=== PATIENT | female | born 1955 | race Caucasian/White ===

== ENCOUNTER 2020-09-16 06:24 | Observation (INO) ==
--- NOTE | 2020-08-27 09:07 | ANES ---
Anesthesia Pre Procedure Eval HOME MEDICATIONS diclofenac sodium 75 mg tablet,delayed release 75 mg PO DAILY tab 06/09/20 [Last Taken Unknown] multivitamin 1 tab PO DAILY 06/09/20 [Last Taken Unknown] cholecalciferol (vitamin D3) 50 mcg (2,000 unit) tablet 2,000 unit PO DAILY 07/15/20 [Last Taken Unknown] amlodipine 5 mg tablet 5 mg PO DAILY #30 tab 08/13/20 [Last Taken Unknown] levothyroxine 100 mcg tablet 100 mcg PO DAILY #30 tab 08/13/20 [Last Taken Unknown] Allergies/Adverse Reactions: Allergies Allergy/AdvReac Type Severity Reaction Status Date / Time clams Allergy Intermediate hives Verified 08/27/20 08:56 Sulfa (Sulfonamide Allergy Intermediate Hives Verified 08/27/20 08:56 Antibiotics) cedar pollen Allergy Intermediate asthma Uncoded 08/27/20 08:56 cleaning agents Allergy Intermediate asthma Uncoded 08/27/20 08:56 - Planned Procedure Planned Procedure: Right Arthroplasty Total Knee Medication List Reviewed:: Yes Allergies Verified: Yes Medical History (Last Reviewed 08/27/20 @ 09:05 by Nuno Velez CRNA) Primary osteoarthritis of right knee (Chronic) Foot pain, left Onset Date: Unknown Hepatitis Onset Date: Unknown Right knee pain Onset Date: ~05/2020 Asthma Onset Date: Unknown Graves disease Onset Date: Unknown HTN (hypertension) Onset Date: Unknown Mariah's disease Onset Date: Unknown Heart murmur Onset Date: Unknown Hyperthyroidism Onset Date: Unknown Post-menopausal Onset Date: Unknown Calculus of kidney Onset Date: Unknown Surgical History (Last Reviewed 08/27/20 @ 09:05 by Nuno Velez CRNA) H/O section Onset Date: ~1979 1977,1978,1979 H/O foot surgery Onset Date: Unknown Dr. Calderon-excise tumor, left foot. Dr. Ramirez-heal spur H/O thumb surgery Onset Date: 11/09/05 Dr. Calderon- excision of mucous cyst right thumb with debridement of bone from proximal phalanx. History of carpal tunnel surgery Onset Date: Unknown Dr. Calderon History of esophagogastroduodenoscopy (EGD) Onset Date: 02/18/12 Jose Mariaan- CLOtest negative, mild chemical irritation. Hx of cholecystectomy Onset Date: 02/28/12 [place] Family History (Last Reviewed 08/27/20 @ 09:05 by Nuno Velez CRNA) Mother Thyroid disease Father Alcoholic Sister 2 half sisters w/? uterine ca, 1 half sister w/breast ca Sister 1 half sister-age 21-lupus, 1 half sister-age 48-lymphoma Grandmother , age 60's Cancer maternal grandmother-colon ca Grandfather , age 60's Cancer maternal grandfather-prostate - Family Anesthesia History Family History:: no untoward family reactions to anesthesia - Airway/Neck/Teeth Teeth Condition: intact - Respiratory Respiratory History: asthma - Cardiovascular Cardiac History: hypertension Tolerate Activity: Fair - Gastrointestinal NPO since: instructed npo after MN - Anesthesia Assessment and Plan ASA Class: PS, III - rt adductor canal block Planned difficult intubation/equipment available: No
[~2020-09-16 06:24] MED LIST: MORPHINE SULFATE 15 MG TABLET.SA PO PRN; ROPIVACAINE HCL/PF 100 MG, EPINEPHrine 0.2 MG, KETOROLAC TROMETHAMINE 30 MG in NORMAL S... IJ PRN; TRANEXAMIC ACID 1,000 MG in NORMAL SALINE 100 ML IV PRN; ceFAZolin SODIUM 1 GM VIAL IV PRN
[2020-09-16] MEDS ORDERED: BUPIVACAINE HCL/EPINEPHRINE 50 ML VIAL IJ ONE (06:54)
[2020-09-16] MEDS ORDERED: BUPIVACAINE HCL/PF 10 ML VIAL ONE (06:54)
[2020-09-16] MEDS ORDERED: LIDOCAINE HCL 20 ML VIAL ONE (06:54)
[2020-09-16] MEDS ORDERED: PROPOFOL VIAL IV ONE (06:55)
[2020-09-16] MEDS ORDERED: MIDAZOLAM HCL/PF 5 MG/ML VIAL ONE (07:01)
[2020-09-16] MEDS ORDERED: NORMAL SALINE 20 ML VIAL ONE (07:01)
[2020-09-16] MEDS ORDERED: ISOPROPYL ALCOHOL 480 APPL BTL MC ONE (07:06)
[2020-09-16] MEDS ORDERED: ceFAZolin SODIUM 1 GM VIAL ONE (07:06)
[2020-09-16] MEDS: RINGER'S SOLUTION,LACTATED 1,000 ML IV PRN ×2 (08:30→09:32)
[2020-09-16] MEDS ORDERED: ACETAMINOPHEN 500 MG TABLET PO PRN (09:51)
[2020-09-16] MEDS ORDERED: MORPHINE SULFATE 2 MG/ML DISP.SYRIN IV PRN (09:51)
[2020-09-16] MEDS ORDERED: MAG HYDROX/ALUMINUM HYD/SIMETH 30 ML UDC PO PRN (09:51)
[2020-09-16] MEDS ORDERED: ZOLPIDEM TARTRATE 5 MG TABLET PO PRN (09:51)
[2020-09-16] MEDS ORDERED: diphenhydrAMINE HCL 50 MG/ML VIAL IV PRN (09:51)
[2020-09-16] MEDS ORDERED: MAGNESIUM HYDROXIDE 30 ML UDC PO PRN (09:51)
[2020-09-16] MEDS ORDERED: ONDANSETRON HCL/PF 2 MG/ML VIAL IV PRN (09:51)
--- NOTE | 2020-09-16 09:51 | OR ---
Operative Report - Dictated Report Narrative: Date: 09/16/2020 Preoperative diagnosis: Right knee degenerative joint disease. Postoperative diagnosis: Right knee degenerative joint disease. Procedure: Right total knee arthroplasty. Surgeon: Dwain Varela M.D. Sql Analyst: Kvng Oropeza PA-C (provided and essential set of skilled, educated hands that assisted with transfer, positioning, prepping, draping, manipulation, retraction, placement of jigs, injection, insertion of implants, irrigation, closure wounds, and dressings all of which could not be performed by the available surgical crew) Anesthesia: Spinal with regional block and local periarticular joint injection. Complications: None Specimens: Bone. Estimated blood loss: Minimal. Tourniquet time: 80 minutes at 325 millimeters of mercury. Retained implants: Depuy Attune size 5 right lugged cemented posterior stabilized femoral component. Size 5 fixed-bearing cemented tibial platform. 5 by 5 millimeter posterior stabilized cross-linked tibial insert. 38 millimeter medialized patella button. Indications: Mrs. Montaño is a 65-year-old female who has had longstanding right knee pain and arthrosis. This patient was followed in my clinic for period of time with significant complaints of right knee pain consistent with arthritic changes. She had failed conservative measures including, but not limited to, activity modification, passage of time, medications, and other conservative measures. Patient wished to proceed with surgical treatment. The risks, benefits, and alternatives were discussed in clinic. The risks of , blood clots, bleeding, infection, nerve/tendon blood vessel/ injury, malposition of components, intraoperative fracture, postoperative limited range of motion, persistent pain, failure of components, and need for additional procedures. Patient wished to proceed consent was obtained after answering all questions. Procedure: After marking the correct extremity on the floor, the patient was taken to the operating room. A timeout was performed. IV antibiotics consisting of Ancef were administered prior to the procedure. A regional followed by spinal anesthetic was induced by anesthesia, per my request, on the operative table with all bony prominences well-padded. Figueroa catheter was placed, and a bump was placed under the operative side buttock. SCDs and TAYLOR hose were utilized on the nonoperative leg. A well-padded tourniquet was applied to the operative thigh. The operative leg was then pre-scrubbed with alcohol, prepped, and draped in a standard sterile fashion. After exsanguinating the extremity with an Esmarch bandage, the tourniquet was inflated. After marking out the anterior knee for standard incision centered over the patella, the skin was incised and dissected down to the joint retinaculum. The joint retinaculum was marked out as well as the horizontal axis of the patella, and a standard medial parapatellar arthrotomy was then made. The most proximal aspect of the quadriceps tendon and the patella tendon insertion were protected from release. A partial synovectomy was performed as well as a resection of the infrapatellar fat pad. The distal femoral fat pad proximal to the trochlea was also resected using cautery. The soft tissues were elevated off the medial aspect of the proximal tibia using a Shields elevator ensuring that we did not transect the medial collateral ligament. Upon initial evaluation range of motion was approximately 0 degrees to 115 degrees of flexion. There were signs of advanced arthrosis in the medial and patellofemoral greater than lateral joint spaces. There were large marginal osteophytes which were removed with a rongeur. The knee was hyperflexed and the patella was tucked laterally. Protecting the surrounding soft tissues with Homans, an entry drill was placed down the femoral canal using Whitesides line for guidance into the entry point. The intramedullary femoral alignment miri was utilized in order to cut the distal femur in 5 degrees of valgus resecting 10 millimeters of bone. Next the distal femur was sized to a size 5. A posterior referencing guide was utilized to place the distal femoral cutting block in 3 degrees of external rotation. This was pinned into place. The rotation was confirmed both visually and based on anatomic landmarks. The 4 in 1 cutting jig of the appropriate size was utilized in order to make all bony cuts. The lora wing was used to ensure no notching. Retractors were utilized in order to protect surrounding soft tissues. This cut did not result in any excessive notching. We then cut the box centered over the distal femur. This allowed for resection of the anterior and posterior cruciate ligaments. I then turned my attention to the preparation of the tibia. Using an extra medullary tibial alignment miri, 3 millimeters of bone was resected off the medial articular surface. This was made perpendicular to the mechanical axis of the joint with the alignment miri centered over the ankle mortise. The alignment miri was checked and was noted to be parallel to the mechanical axis, centered over the medial one third of the tibial tubercle, paralleling the anterior surface of the tibia. We then turned our attention to the remaining meniscus and soft tissues. These were removed while protecting the surrounding ligaments and soft tissues. The marginal osteophytes off the anterior, posterior, medial, lateral aspects of the femur and tibia were removed. The tibia was sized out to a size 5. Next the tibia was drilled and punched in an externally rotated position. Next the trial femur and a series of tibial inserts were utilized in order to allow for full extension and maximal flexion. It was found that a 5 millimeter insert gave the best range of motion and stability at multiple flexion points as well as at full extension there was less than 2 mm of gapping both medially and laterally. There is minimal anterior translation with the knee at 90 degrees of flexion and no signs of being able to dislocate the knee. The patella was then prepared. The initial thickness was 23 millimeters. This was reamed down to 13 millimeters parallel to the anterior surface of the patella. It was sized out to a size 38 medialized patella button. This was then drilled and trialed. Without any medial restraint the patella tracked appropriately and did not sublux or dislocate. At this point, it was felt these were the appropriate sized implants, and all trials were removed. The standard periarticular joint injection consisting of ropivacaine, Toradol, and epinephrine were injected into the periarticular joint tissues. The bony surfaces were thoroughly irrigated with a pulsatile-suction saline irrigation device. A bone plug from the prior resected anterior chamfer cut was placed into the drill hole at the distal femur. The bony surfaces were then dried in preparation for placement of the implants. The cement was vacuum mixed per the screen writer's instructions. The cement was placed on the dry bony surfaces and posterior aspect of the implants. The implants were impacted into place, removing all extruded cement. At this point anesthesia administered tranexamic acid per protocol intravenously. The knee was placed in extension with axial loading with the trial insert while the cement cured. Once the cement cured, all remaining extruded cement was removed. The knee was placed through a range of motion with the trial insert to ensure appropriate range of motion and stability. Final range of motion was approximately 0 to 120 degrees. The knee was again thoroughly irrigated with pulsatile saline lavage. The final polyethylene insert was then impacted into place ensuring no retained soft tissues. The remaining periarticular joint injection was injected. A medium Hemovac drain was placed exiting superior laterally. The knee was then placed over a triangle and the arthrotomy was closed with interrupted #1 Vicryl after thoroughly irrigating the joint. The deep and subcutaneous tissues were closed with interrupted 0 and 3-0 Vicryl respectively. Skin was closed with a running subcutaneous 3-0 Monocryl and Prineo Dermabond dressing. 4 x 4's, Sof-Rol, and a full leg Ras wrap were applied. All sponge, needle, blade, and instrument counts were correct prior to closing the wounds. Postoperative condition: The patient was awoken and transferred to the postanesthesia care unit in stable condition. Plan is to be admitted to the inpatient medical/surgical floor postoperatively for 24 hours of IV antibiotics, physical therapy, occupational therapy, and medical comanagement. Patient will be weightbearing as tolerated with range of motion as tolerated. DVT prophylaxis will be with SCDs, TAYLOR hose, and pharmacological anticoagulation. Anticipated hospital stay is approximately 1-3 days.
--- NOTE | 2020-09-16 10:18 | ANES ---
Post Anesthesia Discharge - Transfer of Care Transfer of Care handoff given to nurse: Yes - Discharge from PACU Discharge from PACU when meets criteria: Yes
--- NOTE | 2020-09-16 10:21 | ANES ---
Anesthesia Procedure Note Procedure Note: ANESTHESIA PROCEDURE NOTE Date of procedure: 09/16/2020. Time of procedure: 06 28. Performed by: Filippo Velez CRNA Director Engineering: Julian Rogers RN . Preprocedure diagnosis: Right knee DJD. Post procedure diagnosis: Same. Procedure: Ultrasound-guided right adductor canal block Indications: Postoperative analgesia. Findings: Patient brought to operating room #4, sedated, and given a spinal anesthetic. Patient's right inner thigh was prepped with ChloraPrep. Ultrasound utilized to identify the saphenous nerve in the right adductor canal. A 4 inch 20-gauge regional block needle was advanced under ultrasound guidance till tip of needle was placed just proximally to saphenous nerve. A total of 25 mL of 0.25% Marcaine with epinephrine 1 200,000 was injected with adequate spread of local anesthesia noted around the nerve. Regional block needle was removed intact. EBL: Minimal. Fluids: N/A. Specimen: N/A. Post procedure condition: The patient tolerated the procedure well. No complications were noted. Thank you for this consultation Filippo Velez CRNA
[2020-09-16] MEDS: DEXTROSE 5%-LACTATED RINGERS 1,000 ML IV PRN ×3 (11:00→22:30)
[2020-09-16] MEDS: ceFAZolin SODIUM 1 GM in DEXTROSE 5 % IN WATER 100 ML IV SCH ×4 (11:01→17:19)
[2020-09-16] MEDS: KETOROLAC TROMETHAMINE 15 MG/ML VIAL IV SCH ×3 (11:01→21:10)
[2020-09-16] MEDS ORDERED: NORMAL SALINE 1,000 ML IV ONE (13:05)
--- NOTE | 2020-09-16 13:36 | PN ---
Subjective - Date and Time Seen Date: 09/16/20 Time: 13:28 Subjective Narrative: Dr. Hernandez was called on Aimee due to her becoming difficult to arouse after surgery with blood pressure dropping to 70/30 with a heart rate of 30. She was given a bolus of Normal Saline at 999ml/hr and her heart rate, blood pressure, and mentation gradually improved. She reports feeling fine at this time, although she is still somnolent. She drifts off to sleep but awakens on verbal c ommand on spontaneously. She has not had any pain medications since arriving to the floor. She had versed and propofol during surgery. Objective - Vitals Vitals: Last Vital Signs Temp 36.2 C 09/16/20 11:03 Pulse 56 L 09/16/20 12:33 Resp 14 09/16/20 11:03 BP 128/99 H 09/16/20 12:33 Pulse Ox 90 L 09/16/20 12:33 - EKG/Xray Findings EKG: other - Sinus Bradycardia, rate 35 - Exam Constitutional: Present: Oriented x3, Cooperative, Somnolent ENT Exam: Present: hearing grossly normal Respiratory: Present: lungs clear, normal breath sounds Cardiovascular/Chest: Present: no edema, no murmur, bradycardia Extremity: Present: other - post op drain with minimal blood Skin Exam: Present: pallor Cauti Physician Documentation - Urinary Catheter Management Urethral (Figueroa) Date of Insertion: 09/16/20 Time of Insertion: 08:30 Assessment/Plan Plan Narrative: Bradycardia and hypotension after surgery. reports she passes out easy at home. I suspect a combination of anesthesia, surgery, and hypovolumia. Will treat with NS fluid bolus, which appears to be improving vitals and mentation already. Continue fluid bolus. Recommend caution with narcotics following this episode when given for pain (pain medications are not the cause of this episode as she has not received any since surgery, but it appears she is very susceptible to hypotension and bradycardia and I would still be very cautions with medicine). Continue to monitor vitals during and after bolus. No other evidence or history of cardiac problems. - Problems/Diagnosis (1) Sinus bradycardia Problem: Acute (2) Hypotension after procedure Problem: Acute
--- NOTE | 2020-09-16 14:17 | ANES ---
Post Anesthesia Assessment - Vital Signs Vitals: Last Vital Signs Temp 35.6 C L 09/16/20 13:20 Pulse 51 L 09/16/20 13:33 Resp 113 H 09/16/20 13:20 BP 116/48 09/16/20 13:33 Pulse Ox 100 09/16/20 13:33 Airway Patency: Normal - Mental Status Level Of Consciousness: Awake - Pain Level Pain Score: 4 - N/V Assessment Nausea/Vomiting Presence: None Dehydration:: No
[2020-09-16] MEDS: oxyCODONE HCL/ACETAMINOPHEN 1 TAB TABLET PO PRN ×2 (14:22→19:49)
[2020-09-16] MEDS: MORPHINE SULFATE 15 MG TABLET.SA PO SCH (20:40)
[2020-09-16] MEDS ORDERED: SENNOSIDES/DOCUSATE SODIUM 1 TAB TABLET PO SCH (21:00)
[2020-09-17] MEDS: oxyCODONE HCL/ACETAMINOPHEN 1 TAB TABLET PO PRN ×2 (01:31→07:16)
[2020-09-17] MEDS: ceFAZolin SODIUM 1 GM in DEXTROSE 5 % IN WATER 100 ML IV SCH ×2 (04:27)
[2020-09-17] MEDS: KETOROLAC TROMETHAMINE 15 MG/ML VIAL IV SCH ×2 (04:28→09:53)
[2020-09-17 06:14] LABS: Hematocrit 35.3 % (37.0-47.0); Mean Cell Volume 88.9 fl (78-100); Mean Corpuscular Hemoglobin 27.7 pg (27-31); Mean Corpuscular Hgb Conc 31.2 g/dl (32-36); Mean Platelet Volume 10.5 fl (8-12.5); Platelet Count 225 K/mm3 (150-450); Red Blood Count 3.97 M/mm3 (4.2-5.4); Red Cell Distribution Width 13.7 % (11.5-14.0)
[2020-09-17 06:21] LABS: Anion Gap 8.8 mmol/L (6.8-13.8); BUN/Creatinine Ratio 13.8 (9.0-21.6); Calcium * 8.6 mg/dL (7.9-10.9); Carbon Dioxide 29.1 mmol/L (24-32.6); Estimated Creat Clear 47.8; Potassium 3.9 mmol/L (3.4-4.6)
[2020-09-17] MEDS ORDERED: LEVOTHYROXINE SODIUM 100 MCG TABLET PO SCH (07:00)
[2020-09-17] MEDS ORDERED: ENOXAPARIN SODIUM 40 MG/0.4 ML SYRG SC SCH (08:52)
[2020-09-17] MEDS ORDERED: MULTIVITAMINS 1 CAP CAPSULE PO SCH (09:00)
[2020-09-17] MEDS ORDERED: CHOLECALCIFEROL 1,000 UNIT CAPSULE PO SCH (09:00)
[2020-09-17] MEDS ORDERED: amLODIPine BESYLATE 5 MG TABLET PO SCH (09:00)
[2020-09-17] MEDS: MORPHINE SULFATE 15 MG TABLET.SA PO SCH (09:59)
--- NOTE | 2020-09-17 12:12 | DS ---
(1) Status post right knee replacement Problem: Acute (2) Sinus bradycardia Problem: Acute (3) Hypotension after procedure Problem: Acute (4) Hypothyroidism (acquired) Problem: Chronic (5) HTN (hypertension) Problem: Chronic Qualifiers: Hypertension type: essential hypertension Qualified Code(s): I10 - Essential (primary) hypertension (6) Obesity Problem: Chronic Qualifiers: Obesity type: due to excess calories Obesity classification: adult class 3 (BMI >= 40) Serious obesity comorbidity presence: with serious comorbidity Body mass index: BMI 45.0-49.9 Qualified Code(s): E66.01 - Morbid (severe) obesity due to excess calories; Z68.42 - Body mass index (BMI) 45.0-49.9, adult Date of Discharge:: 09/17/20 Hospital Course: Mrs. Montaño was admitted to the floor after undergoing right total knee arthroplasty. Tolerated this well. Was admitted to the floor postoperatively for 24 hours of IV antibiotics, pain control, medical comanagement, and occupational and physical therapy. She had an episode of hypotension and bradycardia and was evaluated by Dr. Blair who felt this was medication and anesthesia related. This episode resolved and patient reports she feels good today. OT and PT were consulted to assist with activities of daily living and ambulation. Was made weightbearing as tolerated with range of motion as tolerated. Pain was initially controlled with IV regimen. This was transitioned to oral once tolerating a by mouth intake. Was resumed on home diet and medications. Had a Figueroa catheter inserted and the operating room which was discontinued on postoperative day 1. A drain was placed intraoperatively into the knee which was discontinued on postoperative day 1. Lovenox SCD and TAYLOR hose were utilized for DVT prophylaxis. Vital signs remained stable to the hospital course. Serial labs were obtained which showed a final hemoglobin of 11.0 grams. BMP was reviewed and was stable. Physical examination throughout the hospital course showed an extremity that had sensation that was intact to light touch, palpable pulses, a benign wound, motor intact to the toes, ankle, and knee. Knee range of motion was approximately 5 degrees to 75 degrees. Once an oral pain regimen was tolerated and physical therapy goals were met, it was felt that they were stable for discharge to home. Instructions: Continue with weightbearing as tolerated and range of motion as tolerated. It is OK to shower on the wound if it is not draining. If you note any drainage or for comfort you can cover with dry gauze and tape. Change every 2-3 days as needed. Continue with physical therapy. Resume home diet. Report any fever over 101.5 Fahrenheit, uncontrolled pain, increased drainage, foul odor of drainage, new or increased calf pain or shortness of breath, or any other significant complaints. A 325mg dialy aspirin will be started after finishing anticoagulation if not allergic. Continue with TAYLOR hose on the operative extremity until instructed otherwise. No driving until instructed otherwise. Follow up in approximately 10-14 days. Procedures Performed: see notes below List Procedures: Right total knee arthroplasty Results and Findings: Lab Pending Results 09/17/20 06:00: WBC 8.0, RBC 3.97 L, Hgb 11.0 L, Hct 35.3 L, MCV 88.9, MCH 27.7, MCHC 31.2 L, RDW 13.7, Plt Count 225, MPV 10.5 09/17/20 06:05: Sodium 137, Plasma Sodium 137, Potassium 3.9, Chloride 103, Carbon Dioxide 29.1, Anion Gap 8.8, BUN 13, Creatinine 0.94, Est GFR (Non-Af Amer) 64, BUN/Creatinine Ratio 13.8, Random Glucose 108, Calcium 8.6 Discharge Location: Home Disposition: Home self-care Condition: Good Discharge Activity: Activity as tolerated, Weight bearing, Other - With wheeled walker Discharge Diet: Low salt Referrals: Althea Clayton MD [Primary Care Provider] - Additional Patient Instructions (free text): Physical Therapy at [facility] outpatient rehab department on September 18 at 7:15am. Follow up [facility] Orthopedic office appointment on TuesdayOctober 06 at 9:15am. Prescriptions (Any new or edited meds): Enoxaparin Sodium [Lovenox] 40 mg SC Q24H #7 disp.syrin Transmission Status: Pending to [facility] #[id number] Morphine Sulfate [Ms Contin] 15 mg PO Q12H #14 tablet.sa Transmission Status: Received by [facility] #[id number] oxyCODONE HCL/ACETAMINOPHEN [Percocet 5 MG/325 MG] 2 tab PO Q4H PRN #56 tab PRN Reason: Moderate Pain (Pain Scale 4-6) Transmission Status: Received by [facility] #[id number] Sennosides/Docusate Sodium [Senokot-S] 2 tab PO HS #30 tab Transmission Status: Pending to [facility] #[id number] Complete Home Medications List: Complete Home Medication List: multivitamin 1 tab PO DAILY 06/09/20 cholecalciferol (vitamin D3) 50 mcg (2,000 unit) tablet 2,000 unit PO DAILY 07/15/20 amlodipine 5 mg tablet 5 mg PO DAILY #30 tab 08/13/20 levothyroxine 100 mcg tablet 100 mcg PO DAILY #30 tab 08/13/20 Enoxaparin Sodium [Lovenox] 40 mg SC Q24H #7 disp.syrin 09/17/20 Morphine Sulfate [Ms Contin] 15 mg PO Q12H #14 tablet.sa 09/17/20 Sennosides/Docusate Sodium [Senokot-S] 2 tab PO HS #30 tab 09/17/20 oxyCODONE HCL/ACETAMINOPHEN [Percocet 5 MG/325 MG] 2 tab PO Q4H PRN #56 tab 09/17/20 Amb Orders for Discharge: PT Evaluation and Treatment* Facility: [facility], Location: Rehabilitation Services
[2020-09-17 14:30] VITALS: BP 128/57
== END 2020-09-17 14:59 | disposition home or self-care (01) ==
LOC: MS 06:24 → SUR 06:24
PROVIDERS: ADMIT Orthopaedic Surgery; ATTEND Orthopaedic Surgery